=== PATIENT | female | born 1940 | race Caucasian/White ===

== ENCOUNTER 2021-06-21 10:06 | Inpatient (IN) ==
[2021-06-21] MEDS ORDERED: 0.9 % Sodium Chloride 1,000 ML IVC ONE (11:02)
[2021-06-21 11:30] LABS: Basophils % 0.2 %; Eosinophils # 0.1 K/mcL (0.0-0.6); Eosinophils % 0.7 %; Hematocrit 37.4 % (35.3-44.9); Hemoglobin 12.5 g/dL (11.5-15.4); Immature Granulocytes % 1.2 % (0-4); Lymphocytes # 1.2 K/mcL (0.6-4.6); Lymphocytes % 12.2 %; Mean Corpuscular HGB Conc 33.4 g/dL (31.6-35.5); Mean Corpuscular Hemoglobin 29.9 pg (28.0-33.3); Mean Corpuscular Volume 89.5 fL (83.0-100.0); Mean Platelet Volume 9.9 fL (9.4-12.4); Monocytes # 0.5 K/mcL (0.0-1.3); Monocytes % 4.7 %; Neutrophils # 7.9 K/mcL (1.6-8.9); Platelet Count 164 K/mcL (140-400); Red Blood Count 4.18 M/mcL (3.82-4.97); Red Cell Distribution Width 13.9 % (11.5-14.5); White Blood Count 9.7 K/mcL (4.3-11.1)
[2021-06-21 12:00] LABS: BUN/Creatinine Ratio 20 (6-26); Blood Urea Nitrogen 24 mg/dL (8-23); Calcium 8.8 mg/dL (8.6-10.3); Carbon Dioxide 19 mEq/L (23-29); Chloride 104 mEq/L (98-107); Glucose 100 mg/dL (70-105); Osmolality,Calculated 284 (280-300); Potassium 3.2 mEq/L (3.5-5.1); Sodium 135 mEq/L (136-145); eGFR For African Americans 52 (> 60); eGFR For Non-African Americans 43 (> 60)
[2021-06-21 12:05] LABS: Troponin I < 0.03 ng/mL (< 0.04)
[2021-06-21] MEDS ORDERED: Potassium Effervescent 25 MEQ TABLET.EFF PO ONE (12:30)
[2021-06-21 13:45] LABS: Bilirubin,Urine Negative (Negative); Blood,Urine Negative (Negative); Clarity,Urine Clear (Clear); Color,Urine Light-Yellow (Yellow); Glucose,Urine (UA) Normal (Normal); Ketones,Urine Negative (Negative); Leukocyte Esterase,Urine Negative (Negative); Nitrite,Urine Negative (Negative); Protein,Urine Negative (Neg-Trace); Specific Gravity,Urine 1.012 (1.010-1.025); Urobilinogen,Urine Normal (Normal)
[2021-06-21] MEDS ORDERED: Perflutren Lipid Microsphere 1.3 ML in 0.9 % Sodium Chloride 8.7 ML IVP PRN (16:37)
[2021-06-21] MEDS ORDERED: Naloxone 0.4 MG/ML INJ IVP PRN (16:43)
[2021-06-21] MEDS ORDERED: Benzonatate 100 MG CAPSULE PO PRN (16:51)
[2021-06-21] MEDS: 0.9 % Sodium Chloride 1,000 ML IVC SCH (22:01)
[2021-06-21 23:57] LABS: Troponin I < 0.03 ng/mL (< 0.04)
[2021-06-22 05:33] LABS: Eosinophils # 0.1 K/mcL (0.0-0.6); Eosinophils % 0.7 %; Hematocrit 31.1 % (35.3-44.9); Immature Granulocytes % 0.8 % (0-4); Lymphocytes # 0.9 K/mcL (0.6-4.6); Lymphocytes % 11.5 %; Mean Corpuscular HGB Conc 34.4 g/dL (31.6-35.5); Mean Corpuscular Volume 90.1 fL (83.0-100.0); Mean Platelet Volume 9.9 fL (9.4-12.4); Monocytes # 0.4 K/mcL (0.0-1.3); Monocytes % 4.7 %; Neutrophils # 6.1 K/mcL (1.6-8.9); Platelet Count 141 K/mcL (140-400); Red Blood Count 3.45 M/mcL (3.82-4.97); Red Cell Distribution Width 13.9 % (11.5-14.5); Segmented Neutrophils % 82.3 %; White Blood Count 7.4 K/mcL (4.3-11.1)
[2021-06-22 05:39] LABS: Hemoglobin 10.7 g/dL (11.5-15.4)
[2021-06-22 05:56] LABS: Alanine Aminotransferase 6 Units/L (7-52); Albumin 2.9 g/dL (3.5-5.7); Albumin/Globulin Ratio 1.5 (1.1-2.2); Alkaline Phosphatase 48 Units/L (34-104); Aspartate Amino Transferase 13 Units/L (13-39); BUN/Creatinine Ratio 20 (6-26); Bilirubin,Total 0.4 mg/dL (0.3-1.0); Blood Urea Nitrogen 19 mg/dL (8-23); Carbon Dioxide 18 mEq/L (23-29); Chloride 111 mEq/L (98-107); Chol/HDL Ratio 2.2 (0-4.9); Cholesterol 89 mg/dL (< 200); Glucose 121 mg/dL (70-105); HDL Cholesterol 40 mg/dL (40-59); LDL Cholesterol,Calculated 33 mg/dL (< 100); Osmolality,Calculated 286 (280-300); Potassium 3.2 mEq/L (3.5-5.1); Sodium 136 mEq/L (136-145); Total Protein 4.9 g/dL (6.4-8.9); Triglycerides 78 mg/dL (< 150); eGFR For African Americans > 60 (> 60); eGFR For Non-African Americans 56 (> 60)
[2021-06-22] MEDS: Aspirin Enteric Coated 81 MG Tablet PO SCH (08:54)
[2021-06-22] MEDS: Acetaminophen 325 MG TABLET PO PRN ×2 (08:54→20:35)
[2021-06-22 09:11] LABS: Estimated Average Glucose 148 mg/dl; Hemoglobin A1C 6.8 %
[2021-06-22] MEDS: 0.9 % Sodium Chloride 1,000 ML IVC SCH ×2 (14:30→19:30)
[2021-06-22] MEDS: atenoloL 25 MG TABLET PO SCH (15:19)
[2021-06-22] MEDS: Ondansetron ODT 4 MG TAB.RAPDIS SL PRN (17:50)
[2021-06-23 07:19] LABS: Basophils % 0.2 %; Eosinophils # 0.1 K/mcL (0.0-0.6); Eosinophils % 1.1 %; Hematocrit 31.8 % (35.3-44.9); Hemoglobin 10.1 g/dL (11.5-15.4); Immature Granulocytes % 0.8 % (0-4); Lymphocytes # 0.9 K/mcL (0.6-4.6); Lymphocytes % 17.3 %; Mean Corpuscular HGB Conc 31.8 g/dL (31.6-35.5); Mean Corpuscular Hemoglobin 29.6 pg (28.0-33.3); Mean Corpuscular Volume 93.3 fL (83.0-100.0); Mean Platelet Volume 9.2 fL (9.4-12.4); Monocytes # 0.3 K/mcL (0.0-1.3); Monocytes % 5.6 %; Platelet Count 131 K/mcL (140-400); Red Blood Count 3.41 M/mcL (3.82-4.97); White Blood Count 5.3 K/mcL (4.3-11.1)
[2021-06-23 07:34] LABS: Alanine Aminotransferase 6 Units/L (7-52); Albumin 2.7 g/dL (3.5-5.7); Albumin/Globulin Ratio 1.3 (1.1-2.2); Alkaline Phosphatase 48 Units/L (34-104); Aspartate Amino Transferase 14 Units/L (13-39); BUN/Creatinine Ratio 15 (6-26); Bilirubin,Total 0.4 mg/dL (0.3-1.0); Blood Urea Nitrogen 15 mg/dL (8-23); Carbon Dioxide 24 mEq/L (23-29); Chloride 111 mEq/L (98-107); Globulin 2.1 g/dL (2.4-3.5); Glucose 97 mg/dL (70-105); Osmolality,Calculated 289 (280-300); Potassium 3.8 mEq/L (3.5-5.1); Sodium 139 mEq/L (136-145); Total Protein 4.8 g/dL (6.4-8.9); eGFR For African Americans > 60 (> 60); eGFR For Non-African Americans 53 (> 60)
[2021-06-23] MEDS: atenoloL 25 MG TABLET PO SCH (08:45)
[2021-06-23] MEDS: Aspirin Enteric Coated 81 MG Tablet PO SCH (08:45)
[2021-06-23] MEDS: Ringers Solution, Lactated 1,000 ML IVC SCH ×2 (08:46→17:43)
[2021-06-23] MEDS: Ondansetron ODT 4 MG TAB.RAPDIS SL PRN (14:42)
[2021-06-23] MEDS: Acetaminophen 325 MG TABLET PO PRN (20:33)
[2021-06-24] MEDS ORDERED: Albuterol 2.5 MG/3 ML NEBULIZER IH PRN (07:55)
[2021-06-24 07:56] LABS: Basophils % 0.2 %; Eosinophils % 0.4 %; Hematocrit 31.9 % (35.3-44.9); Hemoglobin 10.7 g/dL (11.5-15.4); Immature Granulocytes % 0.4 % (0-4); Lymphocytes # 0.5 K/mcL (0.6-4.6); Lymphocytes % 10.1 %; Mean Corpuscular HGB Conc 33.5 g/dL (31.6-35.5); Mean Corpuscular Volume 92.5 fL (83.0-100.0); Mean Platelet Volume 9.5 fL (9.4-12.4); Monocytes # 0.2 K/mcL (0.0-1.3); Monocytes % 4.3 %; Neutrophils # 4.4 K/mcL (1.6-8.9); Platelet Count 141 K/mcL (140-400); Red Blood Count 3.45 M/mcL (3.82-4.97); Segmented Neutrophils % 84.6 %; White Blood Count 5.1 K/mcL (4.3-11.1)
[2021-06-24] MEDS ORDERED: Albuterol 2.5 MG/3 ML NEBULIZER IH SCH (08:00)
[2021-06-24 08:15] LABS: Alanine Aminotransferase 5 Units/L (7-52); Albumin 2.7 g/dL (3.5-5.7); Albumin/Globulin Ratio 1.3 (1.1-2.2); Alkaline Phosphatase 49 Units/L (34-104); Aspartate Amino Transferase 14 Units/L (13-39); BUN/Creatinine Ratio 13 (6-26); Bilirubin,Total 0.4 mg/dL (0.3-1.0); Blood Urea Nitrogen 12 mg/dL (8-23); Calcium 7.8 mg/dL (8.6-10.3); Carbon Dioxide 25 mEq/L (23-29); Chloride 102 mEq/L (98-107); Globulin 2.1 g/dL (2.4-3.5); Glucose 113 mg/dL (70-105); Osmolality,Calculated 277 (280-300); Potassium 3.2 mEq/L (3.5-5.1); Sodium 133 mEq/L (136-145); Total Protein 4.8 g/dL (6.4-8.9); eGFR For African Americans > 60 (> 60); eGFR For Non-African Americans 59 (> 60)
[2021-06-24] MEDS: Aspirin Enteric Coated 81 MG Tablet PO SCH (08:52)
[2021-06-24] MEDS: atenoloL 25 MG TABLET PO SCH (08:52)
[2021-06-24 15:02] VITALS: BP 105/69; PULSE 71; TEMP 97.5; O2SAT 96
== END 2021-06-24 16:30 | disposition home or self-care (01) | DRG 177 ==
LOC: 3BNU 10:06 → EMEROOARM 10:06 → 3BNU 16:16
PROVIDERS: ADMIT Student in an Organized Health Care Education/Training Program; ATTEND Student in an Organized Health Care Education/Training Program